=== PATIENT | female | born 1970 | race American Indian/Alaskan Native ===

== ENCOUNTER 2017-01-12 10:51 | Day surgery (SDC) | payer MEDICARE ==
[2017-01-12] MEDS ORDERED: NACL 0.9% 1000 ML 1,000 ML IV SCH (13:00)
[2017-01-12] MEDS ORDERED: DIPRIVAN 10 MG/ML IV ONE (13:27)
--- NOTE | 2017-01-12 13:33 | Anesthesia Day of Surgery ---
Anesthesia Day of Surgery - Day of Surgery Patient Examined: Yes Patient H&P Reviewed: Yes Patient is NPO: Yes
--- NOTE | 2017-01-12 13:34 | Anesthesia Consultation ---
Anesthesia Consult and Med Hx Date of service: 01/12/17 - Airway Anesthetic Teeth Evaluation: Good ROM Head & Neck: Adequate Mental/Hyoid Distance: Adequate Mallampati Class: Class I Intubation Access Assessment: Good - Pulmonary Exam CTA: Yes - Cardiac Exam Cardiac Exam: RRR - Pre-Operative Health Status ASA Pre-Surgery Classification: ASA2 Proposed Anesthetic Plan: MAC - Pulmonary Hx Asthma: No - Cardiovascular System Hx Hypertension: No - Central Nervous System Hx Seizures: No Hx Psychiatric Problems: No - Endocrine Hx Renal Disease: No Hx Hypothyroidism: No Hx Hyperthyroidism: No - Hematic Hx Anemia: No Hx Sickle Cell Disease: No - Other Systems Hx Alcohol Use: Yes Hx Obesity: Yes
--- NOTE | 2017-01-12 13:58 | Operative Report ---
Operative Report Operative Report: Date of procedure: 01/12/2017 Procedure: Gastroduodenoscopy will multiple mucosal biopsies Attending physician: Roberto Morales MD Senior Net Engineer: Roberto Morales MD Indication: Patient is a 46-year-old female who presented with a history of recurrent epigastric pain had been and indigestion. An upper endoscopy is done to evaluate patient so that treatment may be directed based on the findings. Consent: Informed consent was obtained after advising the patient and family regarding nature of this procedure, its indications, potential benefits as well as possible complications including but not limited to bleeding perforation and adverse reaction to medication, infection as well as other cardiopulmonary complications. An informed written and verbal consent was then obtained after due opportunity was provided for questions and answers. Monitoring: Patient was monitored continuously with pulse oximetry and electrocardiographic recordings as well as blood pressure recordings. Vital signs remained stable throughout this procedure with no untoward events. Preoperative assessment: Patient was assessed immediately prior to this procedure for capacity to tolerate monitored anesthesia care and moderate sedation as well as general anesthesia. Patient's ASA classification is 3, Mallampati class is 2, Hyomental distance is 3. Instrument: BigMLn video endoscope Medications: Propofol given intravenously in divided doses. For details please refer to anesthesia records. Description of procedure: Patient was placed in the left lateral decubitus position after achieving sedation, the endoscope was introduced into the esophagus under direct vision. It was then advanced beyond the esophagus into the stomach and then beyond the stomach into the duodenum and to the second portion of the duodenum. It was subsequently withdrawn with careful inspection of all mucosal surfaces with the following findings. Findings: There was mild erosive esophagitis involving this esophagus. Patient had a large hiatal hernia seen on entry into the stomach. The stomach was tortuous. There was erythema in the gastric antrum. The pyloric channel was patulous. Biopsies of the antrum were obtained for histopathology. Duodenum was normal to second portion. Impression: Erosive esophagitis Large hiatal hernia Tortuous stomach Gastric antral erythema Plan: Continue treatment with proton pump inhibitors Follow pathology report and direct additional treatment based on pathology report. Consider upper GI series to further define gastric anatomy.
--- NOTE | 2017-01-12 13:59 | Discharge Summary ---
Short Stay Discharge Plan Activity: advance as tolerated Weight Bearing Status: Weight Bear as Tolerated Diet: regular
[2017-01-12 14:32] VITALS: BP 148/82
== END 2017-01-12 10:52 | disposition home or self-care (01) ==
LOC: GIO 10:51
PROVIDERS: ATTEND Internal Medicine Gastroenterology
DX: K29.50 Unspecified chronic gastritis without bleeding (principal); K21.0 Gastro-esophageal reflux disease with esophagitis; K44.9 Diaphragmatic hernia without obstruction or gangrene; K31.89 Other diseases of stomach and duodenum; B96.81 Helicobacter pylori [H. pylori] as the cause of diseases classified elsewhere; E66.01 Morbid (severe) obesity due to excess calories; Z68.41 Body mass index [BMI] 40.0-44.9, adult; Z88.5 Allergy status to narcotic agent; Z72.89 Other problems related to lifestyle; Z79.899 Other long term (current) drug therapy; Z83.79 Family history of other diseases of the digestive system
CPT/HCPCS: 43239; 81025; 88305; 88342; J2704; J7030